=== PATIENT | female | born 1990 | race Caucasian/White ===

== ENCOUNTER → 2021-07-23 13:19 | Outpatient (BNVA) | payer OTHER, SELFPAY | PROVIDERS: Visit Provider Advanced Practice Midwife | DX: L65.9 Nonscarring hair loss, unspecified (principal); L68.0 Hirsutism; E66.01 Morbid (severe) obesity due to excess calories; N92.6 Irregular menstruation, unspecified | CPT/HCPCS: 81025; 99212 ==

== ENCOUNTER 2021-08-06 16:05 | Outpatient (REF) | payer OTHER, SELFPAY ==
--- NOTE | ~2021-08-06 | US_ITS ---
EXAMINATION: US PELVIS CLINICAL INFORMATION: Irregular menses. COMPARISON: None TECHNIQUE: Ultrasound of the pelvis is performed using both transabdominal and transvaginal transducers along with Doppler. Transvaginal imaging is performed due to inadequate visualization transabdominally. FINDINGS: Uterus: The uterus is anteverted, anteflexed and measures 7.0 cm in length, 2.7 cm AP, and 4.0 cm in transverse dimension. The double wall endometrial thickness is 1.1 mm. The uterus is smooth in contour and has normal myometrial echogenicity. No visible fibroid. There are small nabothian cysts seen in the cervix. Adnexa: Both ovaries are visualized. There is normal color flow to the adnexa. There is no ovarian torsion. There is no pelvic ascites or fluid collection. Right ovary measures 3.3 x 2.1 x 1.9 cm and volume 6.9 mL. There are anechoic cysts, the largest measuring 1.3 x 1.5 x 1.3 cm. Left ovary measures 1.7 x 1.3 x 1.3 and volume 1.5 mL. There are several anechoic cysts. The largest cyst measuring 0.5 x 0.9 x 0.8 cm. US/US pelvic and transvaginal IMPRESSION: Multiple bilateral ovarian cysts, likely polycystic disease. The uterus is unremarkable. Several nabothian cysts seen in the cervix.
== END 2021-08-06 16:06 | disposition home or self-care (01) ==
LOC: HO.US 16:05
PROVIDERS: Visit Provider Advanced Practice Midwife
DX: E66.01 Morbid (severe) obesity due to excess calories (principal); L65.9 Nonscarring hair loss, unspecified; N92.6 Irregular menstruation, unspecified; L68.0 Hirsutism
CPT/HCPCS: 76830; 76856

== ENCOUNTER → 2021-09-03 10:11 | Outpatient (BNVA) | payer OTHER, SELFPAY | PROVIDERS: Visit Provider Advanced Practice Midwife ==